=== PATIENT | female | born 1985 | race Caucasian/White ===

== ENCOUNTER 2017-11-09 18:26 | Inpatient (IN) | payer OTHER ==
[2017-11-09] MEDS ORDERED: SODIUM CHLOR 0.9% 1000 ML INJ 1,000 ML OTHER PRN (19:54)
[2017-11-09] MEDS ORDERED: LACTATED RINGER'S 1000 ML INJ 1,000 ML IV PRN (19:54)
[2017-11-09] MEDS ORDERED: SODIUM CHLORIDE 0.9% FLUSH 10 ML FLUSH IV FLUSH PRN (20:00)
[2017-11-09] MEDS ORDERED: LIDOCAINE HCL 1% 50 ML VIAL I-DERMAL PRN (20:00)
[2017-11-09] MEDS ORDERED: CITRIC ACID-SODIUM CITRATE LIQ 30 ML UDC PO SCH (20:00)
[2017-11-09] MEDS ORDERED: ONDANSETRON HCL 4 MG/2 ML VIAL IV PUSH PRN (20:00)
[2017-11-09] MEDS ORDERED: DINOPROSTONE 10 MG VAG INSERT VAGINAL ONE (20:00)
[2017-11-09] MEDS ORDERED: LIDOCAINE HCL 1% 50 ML VIAL INFIL PRN (20:00)
[2017-11-09] MEDS ORDERED: OXYTOCIN 30 UNITS-500ML PREMIX 500 ML IV ONE (20:00)
[2017-11-09] MEDS ORDERED: MINERAL OIL 10 ML VIAL TOPICAL PRN (20:00)
[2017-11-09] MEDS ORDERED: SODIUM CHLORID 0.9% 500 ML INJ 500 ML IV PRN (20:00)
[2017-11-09] MEDS ORDERED: ACETAMINOPHEN 325 MG TAB PO PRN (20:00)
[2017-11-09] MEDS ORDERED: ZOLPIDEM TARTRATE 5 MG TAB PO PRN (20:00)
[2017-11-09] MEDS ORDERED: SODIUM CHLOR 0.9% 1000 ML INJ 1,000 ML IV PRN (20:14)
[2017-11-09] MEDS: LACTATED RINGER'S 1000 ML INJ 1,000 ML IV SCH (20:15)
[2017-11-09 20:18] LABS: AUTOMATED NEUTROPHIL # 10.9 TH/MM3 (1.8-7.7); BASOPHIL # 0.1 TH/MM3 (0-0.2); BASOPHIL % 0.4 % (0.0-2.0); EOSINOPHIL # 0.3 TH/MM3 (0-0.4); EOSINOPHIL % 2.1 % (0.0-4.0); HEMATOCRIT 34.4 % (35.0-46.0); HEMOGLOBIN 11.5 GM/DL (11.6-15.3); LYMPHOCYTE # 3.5 TH/MM3 (1.0-4.8); MEAN CELL VOLUME 90.4 FL (80.0-100.0); MEAN CORPUSCULAR HEMOGLOBIN 30.3 PG (27.0-34.0); MEAN CORPUSCULAR HGB CONC 33.5 % (32.0-36.0); MEAN PLATELET VOLUME 9.7 FL (7.0-11.0); MONO % 6.7 % (0.0-8.0); MONOCYTE # 1.1 TH/MM3 (0-0.9); NEUT % 68.8 % (16.0-70.0); PLATELET COUNT 369 TH/MM3 (150-450); RED BLOOD COUNT 3.81 MIL/MM3 (4.00-5.30); RED CELL DISTRIBUTION WIDTH 13.1 % (11.6-17.2); WHITE BLOOD COUNT 15.9 TH/MM3 (4.0-11.0)
[2017-11-09 20:24] VITALS: BP 113/61; PULSE 64
[2017-11-09 20:30] VITALS: RESP 18
[2017-11-09] MEDS: SODIUM CHLORIDE 0.9% FLUSH 10 ML FLUSH IV FLUSH SCH (21:00)
[2017-11-09 22:00] VITALS: RESP 18
[2017-11-09 23:00] VITALS: RESP 18
[2017-11-10] VITALS (68 sets, daily range): BP systolic 91–122; BP diastolic 35–70; PULSE 57–79; RESP 16–20; TEMP 98–98.8
[2017-11-10] MEDS ORDERED: PENICILLIN G POTASSIUM INJ 5,000,000 UNITS in SODIUM CHLORIDE 0.9% INJ 100 ML IV ONE (06:00)
--- NOTE | 2017-11-10 08:26 | HHI.HP ---
HPI Chief Complaint low fluid at term Date Seen: November 10, 2017 Time Seen: 08:21 Travel History International Travel<30 Days: No Contact w/Intl Traveler<30Days: No Known Affected Area: No History of Present Illness HPI 31 yo mwf G1 with 01/22/17 and EDC 10/29/17 by dates and 11/07/17 by 10 week sono at 40 2/7 with oligo in office yesterday. Increased BMI and history of PCOS but unremarkable . No PTL, GD, HTN. totasl weight gain 13 pounds. Had cervidil last night. This am she is comfortable. Mild UCs only and no leaking, bleeding. GFM Weeks Gestation: 40 Para: 0 History Family History Family History: Negative Social History Alcohol Use: No Tobacco Use: No Substance Abuse: No Allergies-Medications (Allergen,Severity, Reaction): Coded Allergies: No Known Allergies (Unverified , 11/09/17) Review of Systems General / Constitutional: No: Fever, Weight Gain, Chills, Other Eyes: No: Diploplia, Blurred Vision, Visual changes, Pain, Photophobia HENT: No: Headaches, Vertigo, Lightheadedness Cardiovascular: No: Irregular Rhythm, Chest Pain or Discomfort, Palpitations, Tachycardia, Syncope, Varicosities, Edema, Cyanosis Respiratory: No: Cough, Short of Breath, Other Gastrointestinal: No: Nausea, Vomiting, Diarrhea Genitourinary: No: Decreased Urinary Output, Oliguria Musculoskeletal: No: Limited ROM, Weakness, Cramping, Edema, Pain Skin: No Rash, No Itching, No Dryness, No Lumps, No Change in Pigmentation, No Change in Nails, No Alopecia, No Lesions Neurologic: No: Weakness, Dizziness, Syncope, Focal Abnormalities, Coordination Problem, Headache, Slurred Speech, Seizures Psychiatric: No: Depression, Suicidal Ideations, Homicidal Ideation Endocrine: No: Heat Intolerance, Cold Intolerance, Polydipsia, Polyuria, Other Physical Exam Vital Signs Date Time Temp Pulse Resp B/P (MAP) Pulse Ox O2 Delivery O2 Flow Rate FiO2 11/10/17 07:10 98.2 11/10/17 06:39 66 116/58 (77) 11/10/17 06:38 18 11/10/17 04:43 20 11/10/17 04:00 16 5/8/18 03:04 98.8 11/10/17 03:00 16 11/10/17 01:52 16 11/10/17 00:20 98.5 11/10/17 00:19 62 122/67 (85) 11/10/17 00:19 18 11/09/17 23:00 18 11/09/17 22:00 18 11/09/17 20:30 18 11/09/17 20:24 64 113/61 (78) Narrative GENERAL: Well-nourished, well-developed patient. SKIN: Warm and dry. HEAD: Normocephalic and atraumatic. EYES: No scleral icterus. No injection or drainage. ENT: No nasal drainage noted. Mucous membranes pink. Airway patent. NECK: Supple, trachea midline. No JVD. CARDIOVASCULAR: Regular rate and rhythm without murmurs, gallops, or rubs. RESPIRATORY: Breath sounds equal bilaterally. No accessory muscle use. BREASTS: Bilateral exam showed no masses , no retractions, no nipple discharge. fundus term 2-3/90/-1 EFW 7+ pelvis clinically adequate arom scant fluid strip category one EXTREMITIES: No cyanosis or edema. BACK: Nontender without obvious deformity. No CVA tenderness. NEUROLOGICAL: Awake and alert. Motor and sensory grossly within normal limits. Five out of 5 muscle strength in all muscle groups. Normal speech. Caprini VTE Risk Assessment Caprini VTE Risk Assessment: No/Low Risk (score <= 1) Caprini Risk Assessment Model Point Value = 1 Point Value = 2 Point Value = 3 Point Value = 5 Age 41-60 Minor surgery BMI > 25 kg/m2 Swollen legs Varicose veins or History of unexplained or recurrent spontaneous Oral contraceptives or hormone replacement Sepsis (< 1 month) Serious lung disease, including pneumonia (< 1 month) Abnormal pulmonary function Acute myocardial infarction Congestive heart failure (< 1 month) History of inflammatory bowel disease Medical patient at bed rest Age 61-74 Arthroscopic surgery Major open surgery (> 45 min) Laparoscopic surgery (> 45 min) Malignancy Confined to bed (> 72 hours) Immobilizing plaster cast Central venous access Age >= 75 History of VTE Family history of VTE Factor V Leiden Prothrombin [id number] Lupus anticoagulant Anticardiolipin antibodies Elevated serum homocysteine Heparin-induced thrombocytopenia Other congenital or acquired thrombophilia Stroke (< 1 month) Elective arthroplasty Hip, pelvis, or leg fracture Acute spinal cord injury (< 1 month) Prophylaxis Regimen Total Risk Factor Score Risk Level Prophylaxis Regimen 0-1 Low Early ambulation 2 Moderate Order ONE of the following: *Sequential Compression Device (SCD) *Heparin 5000 units SQ BID 3-4 Higher Order ONE of the following medications: *Heparin 5000 units SQ TID *Enoxaparin/Lovenox 40 mg SQ daily (WT < 150 kg, CrCl > 30 mL/min) *Enoxaparin/Lovenox 30 mg SQ daily (WT < 150 kg, CrCl > 10-29 mL/min) *Enoxaparin/Lovenox 30 mg SQ BID (WT < 150 kg, CrCl > 30 mL/min) AND/OR *Sequential Compression Device (SCD) 5 or more Highest Order ONE of the following medications: *Heparin 5000 units SQ TID (Preferred with Epidurals) *Enoxaparin/Lovenox 40 mg SQ daily (WT < 150 kg, CrCl > 30 mL/min) *Enoxaparin/Lovenox 30 mg SQ daily (WT < 150 kg, CrCl > 10-29 mL/min) *Enoxaparin/Lovenox 30 mg SQ BID (WT < 150 kg, CrCl > 30 mL/min) AND *Sequential Compression Device (SCD) Data Data Orders Orders Admit To Inpatient (11/09/17 ) Code Status (11/09/17 19:54) Vital Signs (Adult) .Per protocol (11/09/17 19:54) Activity Oob Ad Mckenzie (11/09/17 19:54) Heart (11/09/17 19:54) Amnioinfusion (11/09/17 19:54) Urinary Catheter Management .ONCE (11/09/17 19:54) Lactated Ringer's 1000 Ml Inj (Lr 1000 M (11/09/17 19:54) Lactated Ringer's 1000 Ml Inj (Lr 1000 M (11/09/17 19:54) Sodium Chlorid 0.9% 500 Ml Inj (Ns 500 M (11/09/17 20:00) Sodium Chlor 0.9% 1000 Ml Inj (Ns 1000 M (11/09/17 20:14) Lidocaine 1% Inj (50 Ml) (Xylocaine 1% I (11/09/17 20:00) Citric Acid-Sodium Citrate Liq (Bicitra (11/09/17 20:00) Ondansetron Inj (Zofran Inj) (11/09/17 20:00) Fentanyl Inj (Fentanyl Inj) (11/09/17 20:00) Fentanyl Inj (Fentanyl Inj) (11/09/17 20:00) Penicillin G Potassium Inj (Pfizerpen-G (11/10/17 06:00) Penicillin G Potassium Inj (Pfizerpen-G (11/10/17 10:00) Complete Blood Count With Diff (11/09/17 19:54) Hold Clot (11/09/17 19:54) Abo/Rh Blood Type (11/09/17 19:54) Urinalysis - C+S If Indicated (11/09/17 19:54) Ob/Psych Drug Screen, Urine (11/09/17 19:54) Resp Oxygen Non Rebreathe Mask (11/09/17 ) ^ Epidural / Intrathecal Infus (11/09/17 19:54) Oxytocin 30 Units-500ml Premix (Pitocin (11/09/17 20:00) Lidocaine 1% Inj (50 Ml) (Xylocaine 1% I (11/09/17 20:00) Light Mineral Oil (Muri-Lube Oil) (11/09/17 20:00) Diet Regular Basic (11/10/17 Breakfast) ^ Labor Induction (11/09/17 19:54) ^ Saline Lock (11/09/17 19:54) ^ Vaginal Insert (11/09/17 19:54) Heart (11/09/17 19:54) Sodium Chloride 0.9% Flush (Ns Flush) (11/09/17 21:00) Sodium Chloride 0.9% Flush (Ns Flush) (11/09/17 20:00) Sodium Chlor 0.9% 1000 Ml Inj (Ns 1000 M (11/09/17 19:54) Dinoprostone Vag Insert (Cervidil Vag In (11/09/17 20:00) Inpatient Certification (11/09/17 ) Specimen To Be Collected PRN (11/09/17 19:54) Specimen To Be Collected PRN (11/09/17 19:54) Zolpidem (Ambien) (11/09/17 20:00) Acetaminophen (Tylenol) (11/09/17 20:00) Diet Regular Basic (11/09/17 Dinner) Labs Laboratory Tests Test 11/09/17 19:40 White Blood Count 15.9 Red Blood Count 3.81 Hemoglobin 11.5 Hematocrit 34.4 Mean Corpuscular Volume 90.4 Mean Corpuscular Hemoglobin 30.3 Mean Corpuscular Hemoglobin Concent 33.5 Red Cell Distribution Width 13.1 Platelet Count 369 Mean Platelet Volume 9.7 Neutrophils (%) (Auto) 68.8 Lymphocytes (%) (Auto) 22.0 Monocytes (%) (Auto) 6.7 Eosinophils (%) (Auto) 2.1 Basophils (%) (Auto) 0.4 Neutrophils # (Auto) 10.9 Lymphocytes # (Auto) 3.5 Monocytes # (Auto) 1.1 Eosinophils # (Auto) 0.3 Basophils # (Auto) 0.1 CBC Comment DIFF FINAL Differential Comment Assessment/Plan Problem List: (1) Oligohydramnios in [place] in third trimester ICD Codes: O41.03X0 - Oligohydramnios, third trimester, not applicable or unspecified Assessment and Plan augment and epidural as needed anticipate pcn G for GBS Eve Ford MD November 10, 2017 08:26
[2017-11-10] MEDS ORDERED: OXYTOCIN 30 UNITS-500ML PREMIX 500 ML IV PRN (08:30)
--- NOTE | 2017-11-10 08:59 | MH ---
cc: Terri Orellana MD DATE OF ADMISSION: 11/09/2017 HISTORY OF PRESENT ILLNESS: She is 31 years old, 1, para 0, intrauterine at 40 weeks and 2 days with oligohydramnios, JEREMÍAS of 2 cm, for induction of labor. care has been at [facility], uncomplicated. Her group B strep was positive. GCT was normal. PAST OBSTETRIC HISTORY: She is primigravida. PAST PICK UP ATTENDANT HISTORY: She had a negative Pap smear in December of 2016. PAST MEDICAL HISTORY: She denies hypertension, diabetes or asthma. PAST SURGICAL HISTORY: She had a colposcopy in 2014. FAMILY HISTORY: She has a sister with Down syndrome. SOCIAL HISTORY: She denies toxic habits. MEDICATIONS: 1. She takes vitamins and vitamin D. ALLERGIES: SHE HAS NO KNOWN DRUG ALLERGIES. PHYSICAL EXAMINATION: VITAL SIGNS: Stable. She is afebrile. Blood pressure is 110/62. She is 202 pounds. HEAD, HEART, CHEST AND LUNG EXAMS: Within normal limits. ABDOMEN: Soft, nontender, gravid. heart rate is 127, JEREMÍAS 2 cm. Biophysical profile was 8/8. PELVIC EXAM: The cervix was 1 cm dilated, 50% effaced, -1 station. ASSESSMENT AND PLAN: She is 31 years old, 1, para 0, intrauterine at 40 weeks and 2 days with oligohydramnios. Risks, benefits and alternatives of Cervidil cervical ripening, followed by Pitocin augmentation have been discussed with the patient. She will need Group B Strep prophylaxis. All of her questions have been answered. Her genetic testing was negative. MD MIYA Andrews/SANTIAGO , 03:58 PM , 04:28 PM
[2017-11-10] MEDS: SODIUM CHLORIDE 0.9% FLUSH 10 ML FLUSH IV FLUSH SCH ×2 (09:00→21:00)
[2017-11-10 09:02] LABS: BILIRUBIN, URINE NEG (NEG); BLOOD, URINE SMALL (NEG); GLUCOSE,URINE NEG (NEG); KETONE, URINE NEG (NEG); MUCUS URINE FEW /lpf (OCC); NITRITE,URINE NEG (NEG); PH, URINE 6.5 (5.0-8.5); URINE COLOR LIGHT-YELLOW (YELLW/STRAW); URINE LEUKOCYTE ESTERASE NEG (NEG)
--- NOTE | 2017-11-10 09:26 | HHI.PR ---
PROGRAMMER ANALYST Note Note S: Visit just to meet the patient, doing well, no complaints O: Exam: Deferred during this encounter, performed by my partner Dr. Ford this morning, at 8 AM, 2 cm/70%/-2, artificially ruptured with clear fluid. FHTs: 130s, moderate variability, accelerations present, no decelerations TOCO: Contractions every 2-3 minutes A/P 31-year-old G1 at 40 weeks and 3 days here for induction of labor secondary to oligohydramnios 1. IUP: Category 1 tracing -Cephalic on admission, GBS positive, EFW 7-1/2 pounds. 2. Induction of labor: Status post Cervidil overnight, removed and artificially ruptured this morning at 8 AM, patient desires expectant management to see if contractions increase and begin cervical change, discussed use of Pitocin if needed. Patient seemed anxious about the delivery process and is asking about a episiotomy, I discussed with her that this is not routine and I rarely perform the myself. Just as anticipatory guidance I reviewed the typical delivery process and possible need for vacuum delivery, I do not anticipate this with her but these are typically unpredicted. Discussed that alternative is , reviewed risks, benefits and expected outcomes of a vacuum delivery including: See below. Consent: The risks (which are relatively low and generally are viewed as acceptable for the above indications by ACOG), benefits, alternatives, expected outcomes, and risks of declining treatment were explained and discussed with the patient risks including but not limited to scalp laceration, retinal hemorrhages, brachial plexus injury, cephalohematoma formation, and subgaleal or intracranial hemorrhage, which typically are transient but can results in permanent neurological sequela. Maternal risk included but not limited to perineal laceration and failure of vacuum and potentially needed a . 3. Oligohydramnios: Induction as above 4. GBS positive: Continue penicillin for prophylaxis. Rajiv Pizano MD November 10, 2017 09:26
[2017-11-10] MEDS ORDERED: PENICILLIN G POTASSIUM INJ 2,500,000 UNITS in SODIUM CHLORIDE 0.9% INJ 100 ML IV SCH (10:00)
[2017-11-10] MEDS: LACTATED RINGER'S 1000 ML INJ 1,000 ML IV SCH ×3 (11:54→21:41)
[2017-11-10] MEDS: PENICILLIN G POTASSIUM INJ 2,500,000 UNITS in SODIUM CHLORIDE 0.9% INJ 100 ML IV SCH ×3 (13:49→21:42)
[2017-11-10] MEDS ORDERED: fentaNYL 2MCG-BUPIV 0.125% INJ 100 ML ONE (21:02)
[2017-11-10] MEDS ORDERED: LIDOCAINE 2%/EPINEPHrine PF 1:200,000 20ML SDV ONE (21:24)
[2017-11-10] MEDS ORDERED: LIDOCAINE HCL 1% PF 5 ML AMPULE ONE (21:24)
[2017-11-10] MEDS ORDERED: ePHEDrine/NS 25 MG/5 ML SYRINGE IV PUSH PRN (22:00)
[2017-11-10] MEDS ORDERED: NO SYSTEM NARCOTICS PRN (22:00)
[2017-11-10] MEDS ORDERED: fentaNYL 2MCG-BUPIV 0.125% 100 ML EPIDURAL PRN (22:00)
[2017-11-10] MEDS ORDERED: DO NOT ADMINISTER ANTICOAGULANTS PRN (22:00)
[2017-11-11] VITALS (85 sets, daily range): BP systolic 82–126; BP diastolic 34–98; PULSE 61–100; RESP 1–20; TEMP 98.7–99.6
[2017-11-11] MEDS: PENICILLIN G POTASSIUM INJ 2,500,000 UNITS in SODIUM CHLORIDE 0.9% INJ 100 ML IV SCH ×2 (02:25→06:00)
--- NOTE | 2017-11-11 08:13 | PD.LABORPN ---
Subjective Subjective comfortable with epidural Objective Vital Signs Vital Signs Date Time Temp Pulse Resp B/P (MAP) Pulse Ox O2 Delivery O2 Flow Rate FiO2 11/11/17 07:25 18 11/11/17 07:25 98.7 91 11/11/17 07:20 73 11/11/17 07:16 77 111/61 (78) 11/11/17 07:15 73 11/11/17 07:05 72 11/11/17 07:01 107/63 (78) 11/11/17 07:00 16 11/11/17 07:00 1 11/11/17 06:55 69 11/11/17 06:45 110/70 (83) 11/11/17 06:40 69 11/11/17 06:35 75 11/11/17 06:31 103/59 (74) 11/11/17 06:30 16 11/11/17 06:25 71 11/11/17 06:16 108/57 (74) 11/11/17 06:10 73 11/11/17 06:01 105/58 (74) 11/11/17 06:00 18 11/11/17 05:55 85 11/11/17 05:40 68 11/11/17 05:31 103/59 (74) 11/11/17 05:25 67 11/11/17 05:23 16 11/11/17 05:16 110/53 (72) 11/11/17 05:01 111/54 (73) 11/11/17 04:55 73 11/11/17 04:52 18 11/11/17 04:46 110/56 (74) 11/11/17 04:40 64 11/11/17 04:31 119/63 (81) 11/11/17 04:30 16 11/11/17 04:25 86 11/11/17 04:15 117/69 (85) 11/11/17 04:10 72 11/11/17 04:01 108/57 (74) 11/11/17 04:00 18 11/11/17 03:55 69 11/11/17 03:46 107/58 (74) 11/11/17 03:40 73 11/11/17 03:31 104/55 (71) 11/11/17 03:25 67 11/11/17 03:16 108/60 (76) 11/11/17 03:10 83 11/11/17 03:00 18 11/11/17 03:00 109/78 (88) 11/11/17 02:55 62 11/11/17 02:46 98/57 (71) 11/11/17 02:40 67 11/11/17 02:35 64 11/11/17 02:31 99/44 (62) 11/11/17 02:25 66 11/11/17 02:16 97/53 (68) 11/11/17 02:16 99.6 11/11/17 02:10 65 11/11/17 02:05 66 11/11/17 02:01 99/53 (68) 11/11/17 02:00 20 11/11/17 01:55 61 11/11/17 01:46 106/59 (75) 11/11/17 01:40 63 11/11/17 01:39 96/34 (54) 11/11/17 01:31 111/64 (80) 11/11/17 01:30 18 11/11/17 01:25 61 11/11/17 01:21 116/61 (79) 11/11/17 01:11 121/66 (84) 11/11/17 01:11 63 11/11/17 01:01 126/75 (92) 11/11/17 00:56 115/60 (78) 11/11/17 00:56 63 11/11/17 00:46 123/73 (90) 11/11/17 00:41 69 11/11/17 00:41 116/52 (73) 11/11/17 00:36 119/80 (93) 11/11/17 00:31 118/98 (105) 11/11/17 00:30 20 11/11/17 00:28 109/62 (78) 11/11/17 00:28 86 11/11/17 00:26 82/35 (51) 11/11/17 00:19 118/59 (78) 11/11/17 00:15 117/73 (88) Objective Pelvic Exam: Cervix: [-] Dilatation: [-] 9 Effacement: [-] 100 Station: [-] 0 to +1 Presentation: [-] vtx Membranes: [intact or ruptured] arom Uterine Contractions: [-] FHT's: Category: [-] 1 Baseline: [-] 130s Reactive: [-] R Variability: [-] good Decels: [-] Weeks Gestation: 40 Gest Age Assessed Date: November 11, 2017 Gest Age Assessed Time: 08:11 Pt started active labor?: Yes Active labor start date: November 10, 2017 Active labor start time: 17:00 Medical induction of labor?: Yes Medical induction start date: November 09, 2017 Medical induction start time: 18:00 Artificial rupture of membrane: Yes Artificial ROM date: November 10, 2017 Assessment/Plan Problem List: (1) Oligohydramnios in [place] in third trimester ICD Codes: O41.03X0 - Oligohydramnios, third trimester, not applicable or unspecified (2) 40 weeks gestation of ICD Codes: Z3A.40 - 40 weeks gestation of Assessment and Plan IUP at 40 wk, IOL for oligo, 9 cm with epidural anticipate GBBS+ on antibx Terri Orellana MD November 11, 2017 08:13
--- NOTE | 2017-11-11 09:11 | PD.OB.DELI ---
Weeks gestation: 40 Gest age assessed date: November 11, 2017 Gest age assessed time: 08:11 Pt started active labor?: Yes Active labor start date: November 10, 2017 Active labor start time: 17:00 Medical induction of labor?: Yes Medical induction start date: November 09, 2017 Medical induction start time: 18:00 Artificial rupture of membrane: Yes Artificial ROM date: November 10, 2017 Artifical ROM time: 08:09 Anesthesia: Epidural Episiotomy: Midline Vaginal Delivery: Normal (after baby pulled down x2 with vacuum by Dr Ford ) Presentation: Occiput anterior Nuchal Cord: x1 Delayed cord clamping (45 sec): No Shoulder Dystocia: Suprapubic pressure given Infant: Male Delivery date: November 11, 2017 Delivery time: 09:10 One Minute : 7 Five Minute : 8 Weight: 7-2 Placenta: Spontaneous delivery Laceration: Episiotomy ( and periurethral) Repair: Chromic interrupted, Vicryl running Estimated blood loss: 400cc Terri Orellana MD November 11, 2017 09:11
[2017-11-11] MEDS ORDERED: ALUMINUM/MAGNESIUM/SIMETH 30 ML CUP PO PRN (09:15)
[2017-11-11] MEDS ORDERED: WITCH HAZEL 50%/GLYCERIN 12.5% 40 PAD JAR TOPICAL PRN (09:15)
[2017-11-11] MEDS ORDERED: SODIUM CHLORIDE 0.9% FLUSH 10 ML FLUSH IV FLUSH PRN (09:15)
[2017-11-11] MEDS ORDERED: ONDANSETRON ODT 4 MG TAB PO PRN (09:15)
[2017-11-11] MEDS ORDERED: oxyCODONE/ACETAMINOPHEN 5 MG/325 MG TAB PO PRN (09:15)
[2017-11-11] MEDS ORDERED: ZOLPIDEM TARTRATE 5 MG TAB PO PRN (09:15)
[2017-11-11] MEDS ORDERED: DOCUSATE SODIUM 50 MG/SENNA 8.6 MG TAB PO PRN (09:15)
[2017-11-11] MEDS ORDERED: BENZOCAINE 20% TOPICAL SPRAY 60 ML CAN TOPICAL PRN (09:15)
[2017-11-11] MEDS ORDERED: OXYTOCIN 30 UNITS-500ML PREMIX 500 ML IV SCH (09:15)
[2017-11-11] MEDS: IBUPROFEN 800 MG TAB PO PRN ×2 (10:38→19:56)
[2017-11-11] MEDS ORDERED: MEASLES, MUMPS, RUBELLA VACCINE 0.5 ML VIAL SQ ONE (16:00)
[2017-11-11] MEDS ORDERED: DIPHTH/TETANUS/ACEL PERTUSSIS (BOOSTER) 0.5 ML VIAL/PFS IM ONE (16:00)
[2017-11-11] MEDS: SODIUM CHLORIDE 0.9% FLUSH 10 ML FLUSH IV FLUSH SCH (20:49)
--- NOTE | 2017-11-12 07:54 | HHI.OB ---
Subjective Post Day: 1 Remarks PPd 1 s/p vacuum assisted vaginal delivery Doing well, pain weell controlled, mod lochia, changing every 3 hours, no symptoms of anemia Objective Vitals/I&O Vital Signs Date Time Temp Pulse Resp B/P (MAP) Pulse Ox O2 Delivery O2 Flow Rate FiO2 11/11/17 20:00 99.3 89 16 98/56 (70) 11/11/17 11:15 98.8 11/11/17 11:15 88 18 103/64 (77) 11/11/17 10:20 16 11/11/17 10:16 94 94/70 (78) 11/11/17 08:58 87 105/55 (72) 11/11/17 08:01 100 102/72 (82) Objective Remarks GENERAL: Well-nourished, well-developed patient. CARDIOVASCULAR: Regular rate and rhythm without murmurs, gallops, or rubs. RESPIRATORY: Breath sounds equal bilaterally. No accessory muscle use. ABDOMEN/GI: Abdomen soft, non-tender. Fundus: Firm, non-tender at umbilicus. GENITOURINARY: Light to moderate bleeding. EXTREMITIES: No cyanosis or edema, non-tender, without signs of DVT. Medications and IVs Current Medications Medications (Trade) Dose Ordered Sig/Josie Route Start Time Stop Time Status Last Admin (NS Flush) 2 ml BID IV FLUSH 11/11/17 21:00 (NS Flush) 2 ml UNSCH PRN IV FLUSH 11/11/17 09:15 11/11/17 10:41 (Tylenol) 650 mg Q4H PRN PO 11/11/17 09:15 (Motrin) 800 mg Q8H PRN PO 11/11/17 09:15 11/11/17 19:56 (Percocet 5-325 Mg) 1 tab Q4H PRN PO 11/11/17 09:15 (Americaine 20% Top Spr) 1 spray Q4H PRN TOPICAL 11/11/17 09:15 (Tucks Pads) 1 applic QID PRN TOPICAL 11/11/17 09:15 (Amarilis-Colace) 2 tab Q12H PRN PO 11/11/17 09:15 (Ambien) 5 mg HS PRN PO 11/11/17 09:15 (Mag-Al Plus Susp Liq) 15 ml Q8H PRN PO 11/11/17 09:15 (Zofran Odt) 4 mg Q6H PRN PO 11/11/17 09:15 Assessment/Plan Problem List: (1) Oligohydramnios in [place] in third trimester ICD Codes: O41.03X0 - Oligohydramnios, third trimester, not applicable or unspecified (2) 40 weeks gestation of ICD Codes: Z3A.40 - 40 weeks gestation of Assessment and Plan PPd 1 s/p vavd cont routine pp care + GBS Discharge Planning home on ppd 2 Love Gaspar MD November 12, 2017 07:54
--- NOTE | 2017-11-12 08:24 | HHI.DCPOC ---
Discharge Care Plan Diagnosis: (1) Status post vacuum-assisted vaginal delivery Your Health Problems Are: Vaginal delivery Report Symptoms to Your Doctor -Temperature above 100.5 degrees -Redness, of incision or excessive or foul smelling drainage -Unusual pain or calf pain -Increased vaginal bleeding -Painful or difficulty urinating -Feelings of extreme sadness or anxiety after 2 weeks Goals to Promote Your Health * To prevent worsening of your condition and complications * To maintain your health at the optimal level Directions to Meet Your Goals Take your medications as prescribed Follow your dietary instruction Follow activity as directed Ensure plenty of rest for recovery Drink fluids for hydration Keep your appointments as scheduled Take your immunizations and boosters as scheduled If your symptoms worsen call your PCP, if no PCP go to Urgent Care Center or Emergency Room Smoking is Dangerous to Your Health. Avoid second hand smoke Call the 24-hour crisis hotline for domestic abuse at Love Gaspar MD November 12, 2017 08:24
[2017-11-12] MEDS: IBUPROFEN 800 MG TAB PO PRN ×2 (08:25→16:44)
[2017-11-12] MEDS ORDERED: IBUP1TAB7 PO (08:25)
[2017-11-12 08:45] VITALS: BP 96/47; PULSE 81; RESP 16; TEMP 98.4; O2SAT 97
[2017-11-12 09:00] VITALS: BP 106/58
[2017-11-12] MEDS: SODIUM CHLORIDE 0.9% FLUSH 10 ML FLUSH IV FLUSH SCH ×2 (09:00→19:07)
[2017-11-12] MEDS: ACETAMINOPHEN 325 MG TAB PO PRN (10:42)
[2017-11-12 20:00] VITALS: BP 102/59; PULSE 64; RESP 16; TEMP 98.3
[2017-11-13] MEDS: IBUPROFEN 800 MG TAB PO PRN (01:12)
[2017-11-13] MEDS: ACETAMINOPHEN 325 MG TAB PO PRN (07:53)
--- NOTE | 2017-11-13 07:58 | HHI.OB ---
Subjective Post Day: 2 Remarks Doing well, Pain is controlled Baby is doing well Bleeding is normal Objective Vitals/I&O Vital Signs Date Time Temp Pulse Resp B/P (MAP) Pulse Ox O2 Delivery O2 Flow Rate FiO2 11/12/17 20:00 98.3 64 16 102/59 (73) 11/12/17 09:00 106/58 (74) 11/12/17 08:45 98.4 81 16 97 11/12/17 08:45 96/47 (63) Objective Remarks GENERAL: Well-nourished, well-developed patient. CARDIOVASCULAR: Regular rate and rhythm without murmurs, gallops, or rubs. RESPIRATORY: Breath sounds equal bilaterally. No accessory muscle use. ABDOMEN/GI: Abdomen soft, non-tender. Fundus: Firm, non-tender at umbilicus. GENITOURINARY: Light to moderate bleeding. EXTREMITIES: No cyanosis or edema, non-tender, without signs of DVT. Medications and IVs Current Medications Medications (Trade) Dose Ordered Sig/Josie Route Start Time Stop Time Status Last Admin (NS Flush) 2 ml BID IV FLUSH 11/11/17 21:00 (NS Flush) 2 ml UNSCH PRN IV FLUSH 11/11/17 09:15 11/11/17 10:41 (Tylenol) 650 mg Q4H PRN PO 11/11/17 09:15 11/12/17 10:42 (Motrin) 800 mg Q8H PRN PO 11/11/17 09:15 11/13/17 01:12 (Percocet 5-325 Mg) 1 tab Q4H PRN PO 11/11/17 09:15 (Americaine 20% Top Spr) 1 spray Q4H PRN TOPICAL 11/11/17 09:15 11/12/17 09:15 (Tucks Pads) 1 applic QID PRN TOPICAL 11/11/17 09:15 (Amarilis-Colace) 2 tab Q12H PRN PO 11/11/17 09:15 (Ambien) 5 mg HS PRN PO 11/11/17 09:15 (Mag-Al Plus Susp Liq) 15 ml Q8H PRN PO 11/11/17 09:15 (Zofran Odt) 4 mg Q6H PRN PO 11/11/17 09:15 Assessment/Plan Problem List: (1) Oligohydramnios in [place] in third trimester ICD Codes: O41.03X0 - Oligohydramnios, third trimester, not applicable or unspecified (2) 40 weeks gestation of ICD Codes: Z3A.40 - 40 weeks gestation of Assessment and Plan PPD #2 Home today Discharge Planning HOME Baljinder Howe MD November 13, 2017 07:58
[2017-11-13 08:00] VITALS: BP 90/50; PULSE 63; RESP 20; TEMP 98.1; O2SAT 99
[2017-11-13] MEDS: SODIUM CHLORIDE 0.9% FLUSH 10 ML FLUSH IV FLUSH SCH (09:00)
== END 2017-11-13 12:54 | disposition home or self-care (01) | DRG 775 ==
LOC: H2EB 18:26 → EDBD 18:26 → H1EA 11-11 10:45
PROVIDERS: ADMIT Obstetrics & Gynecology; ATTEND Obstetrics & Gynecology
PROC: 3E0P7VZ Introduction of Hormone into Female Reproductive, Via Natural or Artificial Opening (ICD-10-PCS; 2017-11-09)
PROC: 3E033VJ Introduction of Other Hormone into Peripheral Vein, Percutaneous Approach (ICD-10-PCS; 2017-11-09)
PROC: 10D07Z6 Extraction of Products of Conception, Vacuum, Via Natural or Artificial Opening (ICD-10-PCS; principal; 2017-11-11)
PROC: 10907ZC Drainage of Amniotic Fluid, Therapeutic from Products of Conception, Via Natural or Artificial Opening (ICD-10-PCS; 2017-11-11)
PROC: 0W8NXZZ Division of Female Perineum, External Approach (ICD-10-PCS; 2017-11-11)
PROC: 0UQMXZZ Repair Vulva, External Approach (ICD-10-PCS; 2017-11-11)
DX: O41.03X0 Oligohydramnios, third trimester, not applicable or unspecified (principal); O99.824 Streptococcus B carrier state complicating childbirth; O66.0 Obstructed labor due to shoulder dystocia; O69.81X0 Labor and delivery complicated by cord around neck, without compression, not applicable or unspecified; O71.82 Other specified trauma to perineum and vulva; Z37.0 Single live birth; Z3A.40 40 weeks gestation of pregnancy; Z82.79 Family history of other congenital malformations, deformations and chromosomal abnormalities
CPT/HCPCS: 59025; 80307; 81001; 85025; 86900; 86901; 88307; G0481; J2540; J2590; J7120